=== PATIENT | female | born 1955 | race Caucasian/White ===

== ENCOUNTER 2020-08-31 15:45 | Outpatient (CLI) | payer MEDICARE | END 2020-08-31 15:46 | disposition home or self-care (01) | LOC: BICRAD 15:45 | PROVIDERS: ATTEND Family Medicine | DX: M79.644 Pain in right finger(s) (principal); M79.641 Pain in right hand; M18.11 Unilateral primary osteoarthritis of first carpometacarpal joint, right hand ==

== ENCOUNTER 2021-02-04 15:06 | Outpatient (CLI) | payer MEDICARE | END 2021-02-04 15:07 | disposition home or self-care (01) | LOC: BICMAMMO 15:06 | PROVIDERS: ATTEND Family Medicine | DX: Z12.31 Encounter for screening mammogram for malignant neoplasm of breast (principal) | CPT/HCPCS: 77063; 77067 ==

== ENCOUNTER 2021-02-25 14:39 | Outpatient (CLI) | payer MEDICARE | END 2021-02-25 14:40 | disposition home or self-care (01) | LOC: BICMAMMO 14:39 | PROVIDERS: ATTEND Family Medicine | DX: Z13.820 Encounter for screening for osteoporosis (principal); N95.9 Unspecified menopausal and perimenopausal disorder; M85.851 Other specified disorders of bone density and structure, right thigh; M85.852 Other specified disorders of bone density and structure, left thigh | CPT/HCPCS: 77080 ==

== ENCOUNTER 2021-03-23 19:00 | Outpatient (CLI) | payer MEDICARE | END 2021-03-23 19:01 | disposition home or self-care (01) | LOC: SLEEPLAB 19:00 | PROVIDERS: ATTEND Family Medicine | DX: G47.33 Obstructive sleep apnea (adult) (pediatric) (principal); R53.83 Other fatigue; F41.9 Anxiety disorder, unspecified; R06.83 Snoring; F31.9 Bipolar disorder, unspecified; G47.00 Insomnia, unspecified; G47.10 Hypersomnia, unspecified | CPT/HCPCS: 95810 ==

== ENCOUNTER 2021-05-23 11:13 | Outpatient (CLI) | payer MEDICARE | END 2021-05-23 11:14 | disposition home or self-care (01) | LOC: BICRAD 11:13 | PROVIDERS: ATTEND Family Medicine | DX: R07.89 Other chest pain (principal); R07.2 Precordial pain; J92.9 Pleural plaque without asbestos; Z95.0 Presence of cardiac pacemaker | CPT/HCPCS: 36415; 71046; 80061 ==

== ENCOUNTER 2021-12-04 14:07 | Outpatient (CLI) | payer MEDICARE | END 2021-12-04 14:08 | disposition home or self-care (01) | LOC: BICRAD 14:07 | PROVIDERS: ATTEND Nurse Practitioner Family | DX: M79.641 Pain in right hand (principal); R22.31 Localized swelling, mass and lump, right upper limb; M18.11 Unilateral primary osteoarthritis of first carpometacarpal joint, right hand ==

== ENCOUNTER 2022-01-21 00:43 | Emergency (ER) | payer MEDICARE, OTHER ==
[2022-01-21] MEDS ORDERED: Ondansetron ODT 4 MG TAB ONE ×2 (01:12→04:48)
== END 2022-01-21 07:05 | disposition home or self-care (01) ==
LOC: ERS 00:43
DX: T40.421A Poisoning by tramadol, accidental (unintentional), initial encounter (principal); E03.9 Hypothyroidism, unspecified; I48.0 Paroxysmal atrial fibrillation
CPT/HCPCS: 99284; Q0162

== ENCOUNTER 2022-02-13 14:15 | Outpatient (CLI) | payer MEDICARE, OTHER | END 2022-02-13 14:16 | disposition home or self-care (01) | LOC: BICMAMMO 14:15 | PROVIDERS: ATTEND Family Medicine | DX: Z12.31 Encounter for screening mammogram for malignant neoplasm of breast (principal) | CPT/HCPCS: 77063; 77067 ==

== ENCOUNTER 2022-05-29 11:04 | Outpatient (CLI) | payer OTHER | END 2022-05-29 11:05 | disposition home or self-care (01) | LOC: BICRAD 11:04 | PROVIDERS: ATTEND Family Medicine | DX: M54.2 Cervicalgia (principal); M54.6 Pain in thoracic spine; M47.814 Spondylosis without myelopathy or radiculopathy, thoracic region; M51.34 Other intervertebral disc degeneration, thoracic region; M25.78 Osteophyte, vertebrae; M41.9 Scoliosis, unspecified; M47.812 Spondylosis without myelopathy or radiculopathy, cervical region; M50.30 Other cervical disc degeneration, unspecified cervical region | CPT/HCPCS: 36415; 72040; 72072; 80053; 80061; 83036; 85025 ==

== ENCOUNTER 2023-03-19 14:43 | Outpatient (CLI) | payer OTHER | END 2023-03-19 14:44 | disposition home or self-care (01) | LOC: BICMAMMO 14:43 | PROVIDERS: ATTEND Family Medicine | DX: Z12.31 Encounter for screening mammogram for malignant neoplasm of breast (principal); N63.10 Unspecified lump in the right breast, unspecified quadrant | CPT/HCPCS: 77063; 77067 ==

== ENCOUNTER 2023-03-24 14:13 | Outpatient (CLI) | payer OTHER | END 2023-03-24 14:14 | disposition home or self-care (01) | LOC: BICMAMMO 14:13 | PROVIDERS: ATTEND Family Medicine | DX: N63.31 Unspecified lump in axillary tail of the right breast (principal) | CPT/HCPCS: 76642; 77065; G0279 ==

== ENCOUNTER 2023-12-16 14:51 | Outpatient (CLI) | payer OTHER | END 2023-12-16 14:52 | disposition home or self-care (01) | LOC: BICMAMMO 14:51 | PROVIDERS: ATTEND Family Medicine | DX: Z13.820 Encounter for screening for osteoporosis (principal); M85.851 Other specified disorders of bone density and structure, right thigh; M85.852 Other specified disorders of bone density and structure, left thigh; Z78.0 Asymptomatic menopausal state | CPT/HCPCS: 77080 ==

== ENCOUNTER 2024-02-08 14:16 | Outpatient (CLI) | payer OTHER | END 2024-02-08 14:17 | disposition home or self-care (01) | LOC: BICMAMMO 14:16 | PROVIDERS: ATTEND Family Medicine | DX: N63.10 Unspecified lump in the right breast, unspecified quadrant (principal); R92.323 Mammographic fibroglandular density, bilateral breasts | CPT/HCPCS: 77066; G0279 ==

== ENCOUNTER 2024-06-06 14:00 | Outpatient (CLI) | payer OTHER | END 2024-06-06 14:01 | disposition home or self-care (01) | LOC: BICCT 14:00 | PROVIDERS: ATTEND Family Medicine | DX: R39.89 Other symptoms and signs involving the genitourinary system (principal); R82.90 Unspecified abnormal findings in urine; K76.9 Liver disease, unspecified; K57.30 Diverticulosis of large intestine without perforation or abscess without bleeding; K44.9 Diaphragmatic hernia without obstruction or gangrene | CPT/HCPCS: 74176 ==

== ENCOUNTER 2025-02-14 14:23 | Outpatient (CLI) | payer OTHER | END 2025-02-14 14:24 | disposition home or self-care (01) | LOC: BICMAMMO 14:23 | PROVIDERS: ATTEND Family Medicine | DX: Z12.31 Encounter for screening mammogram for malignant neoplasm of breast (principal) | CPT/HCPCS: 77063; 77067 ==